=== PATIENT | female | born 1955 | race Caucasian/White ===

== ENCOUNTER 2016-08-09 13:20 | Observation (INO) | payer OTHER ==
[2016-08-09] MEDS ORDERED: KETOROLAC TROMETHAMINE 30 MG/1 ML VIAL IVPUSH ONE (13:51)
[2016-08-09] MEDS ORDERED: CLINDAMYCIN 600MG PREMIX IVPB 50 ML IVPB ONE (13:51)
[2016-08-09] MEDS ORDERED: CLINDAMYCIN PHOSPHATE 600 MG/4 ML VIAL ONE (13:57)
--- NOTE | 2016-08-09 13:57 | PDOC ---
History of Present Illness - General Chief Complaint: Toothache Stated Complaint: INFECTED LEFT UPPER TOOTH #14 Time Seen by Provider: 08/09/16 13:36 - History of Present Illness Initial Comments: 08/09/16 13:52 60-year-old female with a past medical history of hypertension and anxiety patient complained of left facial swelling, and left upper molar dental pain since Friday She noted some facial redness today She denies any fevers or chills She went to the dentist office, who emergently pulled her left upper molar, and then told her to come to the emergency department immediately from the dental office for IV antibiotics The patient denies any swollen lymph nodes, or stiff neck She denies any cough or sputum She denies any other complaints at this time, and the remainder of the review of systems is negative Past History - Past Medical History Allergies/Adverse Reactions: Allergies Allergy/AdvReac Type Severity Reaction Status Date / Time No Known Allergies Allergy Verified 08/09/16 13:23 Home Medications: Ambulatory Orders Lisinopril [Prinivil -] 10 mg PO DAILY 09/02/14 Quetiapine Fumarate [Seroquel -] 200 mg PO HS 09/02/14 Anemia: No Asthma: No 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) Cardiac Disorders: No CVA: No COPD: No CHF: No Dementia: No Diabetes: No GI Disorders: Yes (GASTRIC ULCER-1994) Disorders: No HTN: Yes (DX 2010) Hypercholesterolemia: Yes (DX 2010) Liver Disease: No Psychiatric Problems: Yes (ANXIETY/DEPRESSION/ AUD HULLICNATIONS) Seizures: No Thyroid Disease: No - Surgical History Abdominal Surgery: Yes (ABDOMINAL MASS REMOVED-2011) Appendectomy: No Cardiac Surgery: No Cholecystectomy: Yes (GARY KEITA) Lung Surgery: No Neurologic Surgery: No Orthopedic Surgery: No - Psycho/Social/Smoking Cessation Hx Anxiety: No Suicidal Ideation: No Smoking History: Former smoker Have you smoked in the past 12 months: No Number of Cigarettes Smoked Daily: 25 If you are a former smoker, when did you quit?: 26 YRS AGO Information on smoking cessation initiated: No Hx Alcohol Use: No Drug/Substance Use Hx: No Substance Use Type: None Hx Substance Use Treatment: No *Physical Exam - Vital Signs Last Vital Signs Temp Pulse Resp BP Pulse Ox 99.0 F 102 H 18 188/119 98 08/09/16 13:22 08/09/16 13:22 08/09/16 13:22 08/09/16 13:22 08/09/16 13:22 - Physical Exam Comments: 08/09/16 13:53 Physical exam Last Vital Signs Temp Pulse Resp BP Pulse Ox 99.0 F 102 H 18 188/119 98 08/09/16 13:22 08/09/16 13:22 08/09/16 13:22 08/09/16 13:22 08/09/16 13:22 Patient is alert and ambulatory Head is normocephalic and atraumatic There is left sided facial swelling, with an area of facial cellulitis There is no area of fluctuance felt Patient is able to open and close her mouth, The dental site where the left upper molar was pulled appears clean, but there is surrounding gum swelling There is no purulent drainage from the site There is no submental swelling or tenderness There is no Adrina's angina There is no swelling or tenderness in the angle of the jaw There is no meningismus There is no cervical adenopathy Lungs are clear Heart is regular ED Treatment Course - LABORATORY CBC & Chemistry Diagram: 08/10/16 07:30 08/09/16 13:45 Medical Decision Making - Medical Decision Making 08/09/16 13:55 Dental infection, with some evidence of facial cellulitis Will start with IV Toradol and clindamycin We'll check labwork and blood cultures SIGN OUT Case discussed in detail with oncoming Emergency Physician including history, physical exam and ancillary studies. Oncoming Emergency Physician has assumed care for the patient and will complete the evaluation and treatment. trnsfer of care to Dr. Garrett at 2 PM *DC/Admit/Observation/Transfer Diagnosis at time of Disposition: Dental infection, Facial cellulitis - Discharge Dispostion Condition at time of disposition: Stable
[2016-08-09 14:40] LABS: MCH 27.9 pg (25.7-33.7); MEAN CELL VOLUME 84.7 fl (80-96); MEAN PLT VOLUME 8.5 fl (7.5-11.1); PLATELET COUNT 136 K/MM3 (134-434); RDW 13.1 % (11.6-15.6); WHITE BLOOD COUNT 7.2 K/mm3 (4.0-10.0)
[2016-08-09 14:47] LABS: ALBUMIN 4.5 g/dl (3.5-5.0); ALK PHOS 76 U/L (32-92); ANION GAP 11 (8-16); CALCIUM 9.5 mg/dl (8.4-10.2); CO2 27 mmol/L (22-28); CREATININE 0.8 mg/dl (0.6-1.3); GLUCOSE,RANDOM 97 mg/dl (74-106); SGOT/AST 14 U/L (10-42); SGPT/ALT 15 U/L (10-40); TOT PROT 7.1 g/dl (6.4-8.3)
--- NOTE | 2016-08-09 15:21 | PDOC ---
*Physical Exam - Vital Signs Last Vital Signs Temp Pulse Resp BP Pulse Ox 99.0 F 102 H 18 188/119 98 08/09/16 13:22 08/09/16 13:22 08/09/16 13:22 08/09/16 13:22 08/09/16 13:22 ED Treatment Course - LABORATORY CBC & Chemistry Diagram: 08/09/16 13:45 08/09/16 13:45 - ADDITIONAL ORDERS Additional order review: Laboratory Results 08/09/16 13:45 Sodium 136 Potassium 3.8 Chloride 98 Carbon Dioxide 27 Anion Gap 11 BUN 14 Creatinine 0.8 Creat Clearance w eGFR > 60 Random Glucose 97 Calcium 9.5 Total Bilirubin 1.0 AST 14 ALT 15 Alkaline Phosphatase 76 Total Protein 7.1 Albumin 4.5 08/09/16 13:45 RBC 5.22 H MCV 84.7 MCHC 33.0 RDW 13.1 MPV 8.5 - Medications Given in the ED: ED Medications Discontinued Medications Generic Name Dose Route Start Last Admin Trade Name Freq PRN Reason Stop Dose Admin Clindamycin Phosphate 50 mls @ 100 mls/hr 08/09/16 13:51 08/09/16 14:00 Cleocin 600 Mg Premix Ivpb - IVPB 08/09/16 14:20 100 mls/hr ONCE ONE Administration Ketorolac Tromethamine 30 mg 08/09/16 13:51 08/09/16 13:54 Toradol Injection - IVPUSH 08/09/16 13:52 30 mg ONCE ONE Administration Medical Decision Making - Medical Decision Making 08/09/16 15:16 Patient is a 6-year-old woman with history of hypertension and anxiety. She presents with left facial redness and swelling from the maxilla down to the jaw line. She saw the dentist today and had an extraction of an abscessed tooth, # 14. She was sent to the ED by the dentist for a course of IV antibiotics. Clinically, she states her pain is better post extraction. The left face is markedly swollen but there is no fluctuance or abscess. No involvement of the floor of the mouth or the neck. Impression: Abscess to status post extraction Left facial cellulitis secondary to tooth infection, spreading from the site of the initial infection No abscess, nontoxic Plan: Admit to observation for IV antibiotics Dr. Bailon to aware *DC/Admit/Observation/Transfer Diagnosis at time of Disposition: Infection of tooth, Cellulitis of face - Discharge Dispostion Disposition: HOME Condition at time of disposition: Good Admit: No Decision to Admit order Date/Time: 08/09/16 15:[address] Michi Bailon for admission.
--- NOTE | 2016-08-09 15:43 | PDOC ---
ED Treatment Course - LABORATORY CBC & Chemistry Diagram: 08/09/16 13:45 08/09/16 13:45 - ADDITIONAL ORDERS Additional order review: Laboratory Results 08/09/16 13:45 Sodium 136 Potassium 3.8 Chloride 98 Carbon Dioxide 27 Anion Gap 11 BUN 14 Creatinine 0.8 Creat Clearance w eGFR > 60 Random Glucose 97 Calcium 9.5 Total Bilirubin 1.0 AST 14 ALT 15 Alkaline Phosphatase 76 Total Protein 7.1 Albumin 4.5 08/09/16 13:45 RBC 5.22 H MCV 84.7 MCHC 33.0 RDW 13.1 MPV 8.5 - Medications Given in the ED: ED Medications Discontinued Medications Generic Name Dose Route Start Last Admin Trade Name Freq PRN Reason Stop Dose Admin Clindamycin Phosphate 50 mls @ 100 mls/hr 08/09/16 13:51 08/09/16 14:00 Cleocin 600 Mg Premix Ivpb - IVPB 08/09/16 14:20 100 mls/hr ONCE ONE Administration Ketorolac Tromethamine 30 mg 08/09/16 13:51 08/09/16 13:54 Toradol Injection - IVPUSH 08/09/16 13:52 30 mg ONCE ONE Administration *DC/Admit/Observation/Transfer Diagnosis at time of Disposition: Dental infection, Facial cellulitis - Discharge Dispostion Condition at time of disposition: Stable Admit: Yes Decision to Admit order Date/Time: Decision to Admit Order Category Date Time Status Decision to Admit to Hospital Routine Admission 08/09/16 15:21 Active - Referrals Referrals: Pauline Gonzalez [Primary Care Provider] - - Patient Instructions - Post Discharge Activity
--- NOTE | 2016-08-09 17:12 | HP ---
CHIEF COMPLAINT: Left facial swelling PCP: Dr. Liriano Oncologist: Dr. Harrell [phone] HISTORY OF PRESENT ILLNESS: This is a 60 year old female with pmhx of HTN, anxiety, ? lymphoma with abd tumor removal s/p chemotherapy, former cigarette smoker (for 30 years, quit 9 years ago) with a past medical history of abdominal tumor removal s/p chemotherapy for 2 years, ~ 4 year ago at [facility] presented to the ED after being sent in from her dentist for left facial swelling and redness. Today, she had a left tooth (#14) extracted due to an abscess. She currently states her pain is under control, she has no difficultly breathing or swallowing , denies fever, chills, CP, abd pain, nausea, vomiting. She is still bleeding from her tooth extraction site, changing oral gauze pads, however bleeding is not excessive. Son is at bedside, says she was seen in November at [place] for her lymphoma check up and everything was fine, they were not sure exactly what was removed in her stomach and what lymphoma she had. ER course was notable for: (1) Left sided facial swelling and erythema, no abscess noted, no fluctuance (2) IVF started (3) Clindamycin 600mg x1 Recent Travel: PAST MEDICAL HISTORY: HTN, anxiety, ? lymphoma, abdominal tumor PAST SURGICAL HISTORY: R flank tumor removed Social History: Lives in [place] Smoking: none Alcohol: none Drugs: none Family History: NA Allergies No Known Allergies Allergy (Verified 08/09/16 13:23) HOME MEDICATIONS: Home Medications Medication Instructions Recorded Furosemide [Lasix -] 20 mg PO DAILY 09/02/14 Lisinopril [Prinivil -] 10 mg PO DAILY 09/02/14 Quetiapine Fumarate [Seroquel -] 200 mg PO HS 09/02/14 REVIEW OF SYSTEMS CONSTITUTIONAL: Absent: fever, chills, diaphoresis, generalized weakness, malaise, loss of appetite, weight change HEENT: Tooth abscess Absent: rhinorrhea, nasal congestion, throat pain, throat swelling, difficulty swallowing, mouth swelling, ear pain, eye pain, visual changes CARDIOVASCULAR: Absent: chest pain, syncope, palpitations, irregular heart rate, lightheadedness , peripheral edema RESPIRATORY: Absent: cough, shortness of breath, dyspnea with exertion, orthopnea, wheezing, stridor, hemoptysis GASTROINTESTINAL: Absent: abdominal pain, abdominal distension, nausea, vomiting, diarrhea, constipation, melena, hematochezia GENITOURINARY: Absent: dysuria, frequency, urgency, hesitancy, hematuria, flank pain, genital pain MUSCULOSKELETAL: Absent: myalgia, arthralgia, joint swelling, back pain, neck pain SKIN: Left cheek swelling, redness Absent: rash, itching, pallor HEMATOLOGIC/IMMUNOLOGIC: Absent: easy bleeding, easy bruising, lymphadenopathy, frequent infections ENDOCRINE: Absent: unexplained weight gain, unexplained weight loss, heat intolerance, cold intolerance NEUROLOGIC: Absent: headache, focal weakness or paresthesias, dizziness, unsteady gait, seizure, mental status changes, bladder or bowel incontinence PSYCHIATRIC: Absent: anxiety, depression, suicidal or homicidal ideation, hallucinations. Vital Signs - 24 hr 08/09/16 13:22 Temperature 99.0 F Pulse Rate 102 H Respiratory 18 Rate Blood Pressure 188/119 O2 Sat by Pulse 98 Oximetry (%) PHYSICAL EXAMINATION GENERAL: Awake, alert, and fully oriented, in no acute distress. HEAD: Left facial swelling infraorbital to cheek, no abscess, no fluctuance, + erythema, no cervical lymph involvement Normal with no signs of trauma. EYES: Pupils equal, round and reactive to light, extraocular movements intact, sclera anicteric, conjunctiva clear. No lid lag. EARS, NOSE, THROAT: L tooth bleeding Ears normal, nares patent, oropharynx clear without exudates. Moist mucous membranes. NECK: Normal range of motion, supple without lymphadenopathy, JVD, or masses. LUNGS: Breath sounds equal, clear to auscultation bilaterally. No wheezes, and no crackles. No accessory muscle use. HEART: Regular rate and rhythm, normal S1 and S2 without murmur, rub or gallop. ABDOMEN: Soft, nontender, not distended, normoactive bowel sounds, no guarding, no rebound, no masses. No hepatomegaly or splenomegaly. MUSCULOSKELETAL: Normal range of motion at all joints. No bony deformities or tenderness. No CVA tenderness. UPPER EXTREMITIES: 2+ pulses, warm, well-perfused. No cyanosis. No clubbing. Cap refill <2 seconds. No peripheral edema. LOWER EXTREMITIES: 2+ pulses, warm, well-perfused. No calf tenderness. No peripheral edema. NEUROLOGICAL: Cranial nerves II-XII intact. Normal speech. Normal gait. PSYCHIATRIC: Cooperative. Good eye contact. Appropriate mood and affect. SKIN: Warm, dry, normal turgor, no rashes or lesions noted. Laboratory Results - last 24 hr 08/09/16 08/09/16 13:45 13:45 WBC 7.2 RBC 5.22 H Hgb 14.6 Hct 44.2 MCV 84.7 MCHC 33.0 RDW 13.1 Plt Count 136 MPV 8.5 Sodium 136 Potassium 3.8 Chloride 98 Carbon Dioxide 27 Anion Gap 11 BUN 14 Creatinine 0.8 Creat Clearance w eGFR > 60 Random Glucose 97 Calcium 9.5 Total Bilirubin 1.0 AST 14 ALT 15 Alkaline Phosphatase 76 Total Protein 7.1 Albumin 4.5 Assessment: 60 year old female with HTN admitted for facial cellulitis following left tooth extraction for tooth abscess Plan: 1. Left facial cellulitis s/p left tooth abscess with extraction - Continue clindamycin - Continue IVF - If worsens will obtain imaging and plastics consult 2. HTN - Continue Lisinopril - Continue lasix 3. Anxiety - Continue seroquel 4. Left tooth extraction - Not on any abx per Dentist, will need to go home on augmentin or clinda pending resolution of facial cellulitis 5. DVT ppx - SCDs, expect short stay, hold chemical AC while active bleeding from tooth Problem List - Problem (1) Dental infection Code(s): K04.7 - PERIAPICAL ABSCESS WITHOUT SINUS (2) Facial cellulitis Code(s): L03.211 - CELLULITIS OF FACE (3) HTN (hypertension) Code(s): I10 - ESSENTIAL (PRIMARY) HYPERTENSION (4) Anxiety Code(s): F41.9 - ANXIETY DISORDER, UNSPECIFIED Visit type - Emergency Visit Emergency Visit: Yes Care time: The patient presented to the Emergency Department on the above date and was hospitalized for further evaluation of their emergent condition. - New Patient This patient is new to me today: Yes Date on this admission: 08/09/16 - Critical Care Critical Care patient: No
[2016-08-09] MEDS ORDERED: ACETAMINOPHEN 325 MG TABLET (FP) PO PRN (17:40)
[2016-08-09 18:56] VITALS: BMI 35.1
[2016-08-09] MEDS ORDERED: INFLUENZA VACCINE 60 MCG/0.5 ML (P/F DISP.SYRIN 16-17) IM ONE (18:56)
[2016-08-09] MEDS: SODIUM CHLORIDE 1,000 ML IV SCH (19:25)
[2016-08-09] MEDS: CLINDAMYCIN 600MG PREMIX IVPB 50 ML IVPB SCH (20:09)
[2016-08-09] MEDS: QUEtiapine FUMARATE 200 MG TABLET PO SCH (23:10)
[2016-08-10] MEDS: oxyCODONE HCL 5 MG TABLET PO PRN ×2 (00:44→21:30)
[2016-08-10] MEDS: CLINDAMYCIN 600MG PREMIX IVPB 50 ML IVPB SCH ×4 (03:17→21:30)
[2016-08-10 08:22] LABS: BASOPHIL 0.5 % (0-2.0); EOSINOPHIL 1.9 % (0-4.5); MCH 28.1 pg (25.7-33.7); MEAN CELL VOLUME 85.2 fl (80-96); MEAN PLT VOLUME 8.2 fl (7.5-11.1); NEUTROPHILS 66.1 % (42.8-82.8); PLATELET COUNT 96 K/MM3 (134-434); RDW 12.6 % (11.6-15.6); WHITE BLOOD COUNT 3.9 K/mm3 (4.0-10.0)
[2016-08-10] MEDS ORDERED: MAGNESIUM SULF 50% (8.12 MEQ/2 ML-1 GM VIAL) IVPB ONE (08:50)
[2016-08-10] MEDS ORDERED: MAGNESIUM OXIDE 400 MG TABLET (FP) PO ONE (09:14)
--- NOTE | 2016-08-10 09:54 | PN ---
Progress Note (short form) - Note Progress Note: ID Consult dictated L facial cellulitis S/P dental extraction Empiric clindamycin/ ceftriaxone x 24h D/C home 24h on clindamycin 300mg po tid x 7d
[2016-08-10] MEDS: CEFTRIAXONE 2 GM in DEXTROSE 5%-WATER - 100 ML IVPB SCH (10:09)
[2016-08-10] MEDS: LISINOPRIL 10 MG TABLET (FP) PO SCH (10:09)
[2016-08-10] MEDS: FUROSEMIDE 20 MG TABLET (FP) PO SCH ×2 (10:09→19:31)
--- NOTE | 2016-08-10 13:01 | CONS ---
DATE OF CONSULTATION: DATE OF DICTATION: 08/10/2016 INFECTIOUS DISEASE CONSULTATION HISTORY OF PRESENT ILLNESS: A 60-year-old female evaluated for facial cellulitis. The patient had a dental abscess. She underwent extraction of a left upper molar on the day of admission. She subsequently developed facial erythema and swelling. She was referred by the dentist to the emergency room for IV antibiotic therapy. The patient was empirically treated with clindamycin. She reports some improvement in the left facial swelling and erythema. She has some complaints of dental pain. She denies any associated fever or chills. PAST MEDICAL HISTORY: Positive for hypertension, peptic ulcer disease, hyperlipidemia, lymphoma status post chemotherapy. PAST SURGICAL HISTORY: Status post laparoscopic cholecystectomy. ALLERGIES: No known allergies. MEDICATIONS: Lasix, Prinivil, Seroquel. SOCIAL HISTORY: Former smoker. LABORATORY DATA: White count 3.9, hematocrit 36.4, platelets 96, creatinine 0.8. Blood cultures pending. PHYSICAL EXAMINATION: General: She is awake and alert. She is not acutely toxic appearing. Vital Signs: Temperature 98.9, blood pressure 121/61, pulse 89 and regular, respirations 19 per minute. HEENT: Sclerae anicteric. On examination of the face, there is erythema and swelling involving the left mandibular area. It is warm to touch and slightly tender. No crepitus or fluctuance. Positive submandibular adenopathy. Neck: Supple. Heart: S1, S2 heard. Lungs: Clear. No stridor or wheezing. Abdomen: Soft. No tenderness elicited. Extremities: Negative for edema. IMPRESSION: 1. Left facial cellulitis. 2. Status post extraction of infected left upper molar. PLAN: Await blood culture results. Continue empiric coverage of oral [place] with clindamycin and ceftriaxone. Substitute oral antibiotic therapy with clindamycin 300 mg t.i.d. Next 24 hours with outpatient dental followup. Thank you for the kind referral. ANI STEPHEN M.D. [id number]
--- NOTE | 2016-08-10 15:24 | PN ---
Physical Exam: SUBJECTIVE: Patient seen and examined, denies CP/SOB, denies fever or chills. OBJECTIVE: 60 year old female with HTN admitted for facial cellulitis following left tooth extraction for tooth abscess Last Vital Signs Temp Pulse Resp BP Pulse Ox 98.9 F 81 16 116/63 94 L 08/10/16 14:31 08/10/16 14:31 08/10/16 14:31 08/10/16 14:31 08/10/16 14:31 GENERAL: Awake, alert, and fully oriented, in no acute distress. HEAD: Left facial swelling infraorbital to cheek, no abscess, no induration, + erythema, no cervical lymph involvement Normal with no signs of trauma. EYES: Pupils equal, round and reactive to light, extraocular movements intact, sclera anicteric, conjunctiva clear. No lid lag. EARS, NOSE, THROAT: Left tooth bleeding Ears normal, nares patent, oropharynx clear without exudates. Moist mucous membranes. NECK: Normal range of motion, supple without lymphadenopathy, JVD, or masses. LUNGS: Breath sounds equal, clear to auscultation bilaterally. No wheezes, and no crackles. No accessory muscle use. HEART: Regular rate and rhythm, normal S1 and S2 without murmur, rub or gallop. ABDOMEN: Soft, nontender, not distended, normoactive bowel sounds, no guarding, no rebound, no masses. No hepatomegaly or splenomegaly. MUSCULOSKELETAL: Normal range of motion at all joints. No bony deformities or tenderness. No CVA tenderness. UPPER EXTREMITIES: 2+ pulses, warm, well-perfused. No cyanosis. No clubbing. Cap refill <2 seconds. No peripheral edema. LOWER EXTREMITIES: 2+ pulses, warm, well-perfused. No calf tenderness. No peripheral edema. NEUROLOGICAL: Cranial nerves II-XII intact. Normal speech. Normal gait. PSYCHIATRIC: Cooperative. Good eye contact. Appropriate mood and affect. SKIN: Warm, dry, normal turgor, no rashes or lesions noted. Laboratory Results - last 24 hr 08/10/16 08/10/16 07:30 07:30 WBC 3.9 L D RBC 4.27 Hgb 12.0 D Hct 36.4 D MCV 85.2 MCHC 33.0 RDW 12.6 Plt Count 96 L D MPV 8.2 Neutrophils % 66.1 Lymphocytes % 20.0 Monocytes % 11.5 H Eosinophils % 1.9 Basophils % 0.5 Magnesium 1.7 L Active Medications Generic Name Dose Route Start Last Admin Trade Name Freq PRN Reason Stop Dose Admin Acetaminophen 650 mg 08/09/16 17:40 08/10/16 08:23 Tylenol - PO 650 mg Q4H PRN Administration FEVER OR PAIN Furosemide 20 mg 08/10/16 10:00 08/10/16 10:09 Lasix - PO 20 mg DAILY ERUM Administration Clindamycin Phosphate 50 mls @ 100 mls/hr 08/09/16 21:00 08/10/16 15:19 Cleocin 600 Mg Premix Ivpb - IVPB 100 mls/hr Q6H-IV ERUM Administration Sodium Chloride 1,000 mls @ 83 mls/hr 08/09/16 17:45 08/09/16 19:25 Normal Saline - IV 83 mls/hr ASDIR ERUM Administration Ceftriaxone Sodium 2 gm/ 100 mls @ 200 mls/hr 08/10/16 10:00 08/10/16 10:09 Dextrose IVPB 200 mls/hr DAILY ERUM Administration Lisinopril 10 mg 08/10/16 10:00 08/10/16 10:09 Prinivil PO 10 mg DAILY ERUM Administration Oxycodone HCl 5 mg 08/09/16 17:40 08/10/16 00:44 Roxicodone - PO 5 mg Q4H PRN Administration PAIN Quetiapine Fumarate 200 mg 08/09/16 22:00 08/09/16 23:10 Seroquel - PO 200 mg HS ERUM Administration Microbiology 08/09/16 13:50 Blood Culture - Preliminary Blood - Peripheral Venous NO GROWTH OBTAINED AFTER 24 HOURS, INCUBATION TO CONTINUE FOR 4 DAYS. 08/09/16 13:50 Blood Culture - Preliminary Blood - Peripheral Venous NO GROWTH OBTAINED AFTER 24 HOURS, INCUBATION TO CONTINUE FOR 4 DAYS. ASSESSMENT/PLAN: 1. Left facial cellulitis s/p left tooth abscess with extraction - S/p ID eval with recommendations for: rocephin/clinda x24 hours then clindamycin oral 300 mg po TID x7 days at D/c -Continue IVF - oral surgery f/u at D/c prn analgesia prn antipyretic, blood cultures no growth x24 hrs. 2. HTN: controlled - Continue Lisinopril - Continue lasix monitor BP, adjust meds prn 3. Anxiety - Continue seroquel 4. Left tooth extraction -Per ID, D/c home on clinda( see ID recommendations) 5- hypomagnesemia: replenish, repeat level in AM DVT ppx - SCDs, hold chemical AC while active bleeding from tooth Dispo: still requires inpt care. Visit type - Emergency Visit Emergency Visit: Yes ED Registration Date: 08/09/16 Care time: The patient presented to the Emergency Department on the above date and was hospitalized for further evaluation of their emergent condition. - New Patient This patient is new to me today: Yes Date on this admission: 08/10/16 - Critical Care Critical Care patient: No - Discharge Referral Referred to [facility] Med P.C.: Yes
[2016-08-10] MEDS: SODIUM CHLORIDE 1,000 ML IV SCH (19:31)
[2016-08-10] MEDS: QUEtiapine FUMARATE 200 MG TABLET PO SCH (22:21)
[2016-08-11] MEDS: CLINDAMYCIN 600MG PREMIX IVPB 50 ML IVPB SCH ×2 (02:54→11:28)
[2016-08-11 06:24] VITALS: BP 116/55; PULSE 75; TEMP 98.7
[2016-08-11 08:52] LABS: CALCIUM 8.2 mg/dL (8.5-10.1); CREATININE 0.7 mg/dL (0.55-1.02)
[2016-08-11 09:11] LABS: BASOPHIL 0.8 % (0-2.0); EOSINOPHIL 4.1 % (0-4.5); MCH 29.1 pg (25.7-33.7); MCHC 33.8 g/dl (32.0-36.0); MEAN CELL VOLUME 86.1 fl (80-96); MEAN PLT VOLUME 8.9 fl (7.5-11.1); NEUTROPHILS 54.7 % (42.8-82.8); PLATELET COUNT 97 K/MM3 (134-434); RDW 13.8 % (11.6-15.6); WHITE BLOOD COUNT 3.3 K/mm3 (4.0-10.0)
--- NOTE | 2016-08-11 09:50 | DS ---
Physical Exam: SUBJECTIVE: Patient seen and examined. Feels better. Swallowing without difficulty. OBJECTIVE: Vital Signs Period Temp Pulse Resp BP Sys/Mejia Pulse Ox Last 24 Hr 98.7 F-99.7 F 75-89 16-20 112-121/55-63 94-95 PHYSICAL EXAM GENERAL: The patient is awake, alert, and fully oriented, in no acute distress. HEAD: Normal with no signs of trauma. EYES: PERRL, extraocular movements intact, sclera anicteric, conjunctiva clear. ENT: Ears normal, nares patent, oropharynx clear without exudates, moist mucous membranes. NECK: Trachea midline, full range of motion, supple. LUNGS: Breath sounds equal, clear to auscultation bilaterally, no wheezes, no crackles, no accessory muscle use. HEART: Regular rate and rhythm, S1, S2 without murmur, rub or gallop. ABDOMEN: Soft, nontender, nondistended, normoactive bowel sounds, no guarding, no rebound EXTREMITIES: 2+ pulses, warm, well-perfused, no edema. NEUROLOGICAL: Cranial nerves II through XII grossly intact. Normal speech, steady gait observed. Laboratory Results - last 24 hr 08/11/16 08/11/16 06:30 06:30 WBC 3.3 L RBC 4.32 Hgb 12.6 Hct 37.2 MCV 86.1 MCHC 33.8 RDW 13.8 Plt Count 97 L MPV 8.9 Neutrophils % 54.7 Lymphocytes % 27.5 Monocytes % 12.9 H Eosinophils % 4.1 Basophils % 0.8 Sodium 140 Potassium 4.3 Chloride 105 Carbon Dioxide 29 Anion Gap 6 L BUN 15 Creatinine 0.7 Random Glucose 82 Calcium 8.2 L HOSPITAL COURSE: Date of Admission:08/09/16 Date of Discharge: 08/11/16 Patient is a 60 year-old woman with history of hypertension and anxiety. She presented to ED with left facial redness and swelling from the maxilla down to the jaw line. She saw the dentist earlier in the day and had an extraction of an abscessed tooth, #14. She was sent to the ED by the dentist for a course of IV antibiotics. Clinically, she stated her pain was better post extraction. The left face was markedly swollen but there is no fluctuance or abscess. No involvement of the floor of the mouth or the neck. Impression: Abscess to status post extraction Left facial cellulitis secondary to tooth infection, spreading from the site of the initial infection No abscess, nontoxic Admitted to observation for IV antibiotics Started on clindamycin IV and ceftriaxone for 24 hours. Discharged to home with a prescription for clindamycin PO 300mg TID x 7 days. Follow up with dentist in one week. Minutes to complete discharge: 35 Discharge Summary Reason For Visit: FACIAL CELLULITIS Current Active Problems Anxiety (Acute) Dental infection (Acute) Facial cellulitis (Acute) HTN (hypertension) (Acute) Condition: Improved - Instructions Diet, Activity, Other Instructions: A prescription for clindamycin has been sent to your pharmacy. This is an antibiotic. Take this medication as directed and be sure to FINISH all the medication. You should follow up with your dentist in one week. Return to the emergency department for any new or worsening symptoms. Referrals: Pauline Gonzalez [Primary Care Provider] - Disposition: HOME - Home Medications Comprehensive Discharge Medication List: Ambulatory Orders Lisinopril [Prinivil] 10 mg PO DAILY 09/02/14 Quetiapine Fumarate [Seroquel -] 200 mg PO HS 09/02/14 This patient is new to me today: Yes Date on this admission: 08/11/16 Emergency Visit: Yes ED Registration Date: 08/09/16 Care time: The patient presented to the Emergency Department on the above date and was hospitalized for further evaluation of their emergent condition. Critical Care patient: No - Discharge Referral Referred to [facility] Med P.C.: No
[2016-08-11] MEDS: LISINOPRIL 10 MG TABLET (FP) PO SCH (10:05)
[2016-08-11] MEDS: FUROSEMIDE 20 MG TABLET (FP) PO SCH (10:05)
[2016-08-11] MEDS: CEFTRIAXONE 2 GM in DEXTROSE 5%-WATER - 100 ML IVPB SCH (11:29)
== END 2016-08-11 10:55 | disposition home or self-care (01) ==
LOC: FER 13:20 → FM/S 17:36
PROVIDERS: ADMIT Internal Medicine; ATTEND Nurse Practitioner Acute Care
DX: L03.211 Cellulitis of face (principal); K04.7 Periapical abscess without sinus; I10 Essential (primary) hypertension; F41.9 Anxiety disorder, unspecified; E83.42 Hypomagnesemia
CPT/HCPCS: 36415; 80048; 80053; 83735; 85025; 85027; 87040; 99284-25; G0378

== ENCOUNTER 2017-01-15 07:15 | Day surgery (SDC) | payer OTHER ==
[2017-01-08 18:06] VITALS: BMI 37.1
[2017-01-15] MEDS ORDERED: PROPOFOL 20 ML ONE (07:25)
[2017-01-15 10:22] VITALS: TEMP 98
[2017-01-15 10:41] VITALS: BP 127/59; PULSE 61
--- NOTE | 2017-01-16 15:55 | PATH ---
Surgical Pathology Report Patient Name: NIRANJAN RODRÍGUEZ [facility]. Rec. #: [id number] /Age/Gender: 1955 (Age: 61) / F Account: [id number] Location: [facility] / [facility]-ENDOSCOPY Taken: 01/15/2017 Received: 01/15/2017 Reported: 01/16/2017 Physicians: Serjio Oneill M.D. Specimen(s) Received A: BX ANTRUM B: BX DUODENUM Clinical History GERD Rule out celiac disease, gastritis Final Diagnosis A. ANTRUM, BIOPSY: MILD CHRONIC GASTRITIS. IMMUNOSTAIN IS NEGATIVE FOR H. PYLORI ORGANISMS. B. DUODENUM, BIOPSY: DUODENAL MUCOSA WITH NO PATHOLOGIC FINDINGS. Note: Features suggestive of celiac disease are not identified in this biopsy. Electronically Signed Giselle Dobson M.D. Gross Description A. Received in formalin, labeled "antrum" are 2 bautista, irregular portions of soft tissue measuring 0.3 and 0.4 cm. in greatest dimension. The specimens are submitted in toto in one cassette. B. Received in formalin, labeled "duodenum" are 2 bautista, irregular portions of soft tissue measuring 0.3 and 0.4 cm. in greatest dimension. The specimens are submitted in toto in one cassette. 01/15/201701/15/2017
== END 2017-01-15 11:00 | disposition home or self-care (01) ==
LOC: FASU-ENDO 07:15
PROVIDERS: ATTEND Internal Medicine Gastroenterology
PROC: 0DB98ZX Excision of Duodenum, Via Natural or Artificial Opening Endoscopic, Diagnostic (ICD-10-PCS; principal; 2017-01-15 09:46)
PROC: 0DB68ZX Excision of Stomach, Via Natural or Artificial Opening Endoscopic, Diagnostic (ICD-10-PCS; 2017-01-15 09:46)
DX: K29.50 Unspecified chronic gastritis without bleeding (principal); R10.13 Epigastric pain
CPT/HCPCS: 88305-TC; 88342-TC